=== PATIENT | male | born 1955 | race Caucasian/White ===

== ENCOUNTER → 2019-09-30 10:37 | Outpatient (BNVA) | payer BC, SELFPAY | PROVIDERS: Family Provider Nurse Practitioner; PCP Nurse Practitioner; Visit Provider Nurse Practitioner | DX: F41.9 Anxiety disorder, unspecified (principal); E78.2 Mixed hyperlipidemia; K21.9 Gastro-esophageal reflux disease without esophagitis; I10 Essential (primary) hypertension | CPT/HCPCS: 80053; 80061 ==

== ENCOUNTER 2019-12-23 08:45 | Outpatient (CLI) | payer MEDICARE, SELFPAY ==
--- NOTE | 2019-12-23 08:55 | NMCV_ITS ---
NM ok perf SPECT r/s* [id number] Eugenio Daugherty Age: 64 Gender: M : 1955 Exam Date: 12/23/2019 08:55 Ordering Phys: Efraín Lehman MD ([email or web address]) Technologist: DENZEL Fan Exam Location: [facility] Indications: CHEST PAIN STRESS TEST Please see separate stress test report in [facility] for full findings IMAGE PROTOCOL Rest/Stress 1 Lexiscan Day Radiopharmaceutical Dose (mCi) Administration Site Administered by Rest: Tc-99m 10.9 IV DENZEL Martines Sestamibi Stress:Tc-99m 32.8 IV DENZEL Martines Sestamibi Rest: 23-Dec-2019 60 Discovery 630 Stress: 23-Dec-2019 30 Discovery 630 0.4mg Lexiscan. Images obtained in supine and prone position. SPECT RESULTS Technical Quality: Excellent Raw Data Analysis: Normal Image Corrections: No attenuation or motion correction applied Summed Stress Score: 2 Summed Rest Score: 0 Summed Difference Score: 2 PERFUSION FINDINGS Small sized perfusion abnormality of mild severity of inferior wall on stress images. FUNCTIONAL RESULTS (calculated via Gated SPECT) Stress Image LV EF (%): 47 Stress EDV (mL):158 TID: 0.93 Stress ESV (mL):83 FUNCTIONAL FINDINGS: The left ventricle is normal in size. Transient Ischemia Dilatation of 0.93. There is mildly reduced left ventricular global systolic function. The left ventricular ejection fraction is mildly reduced with a value of 47%. Mild global hypokinesis. Increased end-diastolic and end-systolic volumes. IMPRESSIONS 1. Small sized perfusion abnormality of mild severity of inferior wall on stress images. This may be suggestive of small area of ischemia in right coronary artery territory. 2. The left ventricular ejection fraction is mildly reduced with a value of 47%. 3. Mild global hypokinesis. 4. When compared to previous study last year, there is small area of ischemia in right coronary artery territory. Leticia Tovar MD (Electronically Signed) Final Date: 23 Dec 2019 13:38 S
--- NOTE | 2019-12-23 08:55 | ECG_ITS ---
NAME OF STUDY: LEXISCAN SESTAMIBI STRESS TEST INDICATION: Chest Pain LEXISCAN STRESS TEST ORDERING PHYSICIAN: Fallon CLINICAL INFORMATION: Chest pain INTERPRETATION: 1. The patient was brought to the laboratory where Lexiscan was infused over 20 seconds. The resting blood pressure was 150/74. Maximum blood pressure was 150/74. The resting heart rate was 47 beats per minute. The maximum heart rate is 62 beats per minute. 2. The baseline electrocardiogram reveals sinus rhythm with LVH by voltage and a right bundle branch block. 3. With Lexiscan infusion, there were no ST segment changes to suggest ischemia. 4. The patient experienced no symptoms or arrhythmias during the examination. CONCLUSION: 1. Unremarkable Lexiscan infusion. 2. Nuclear imaging to follow. Electronically Signed On 12-23-2019 17:08:51 CDT by Efraín Lehman M.D. [email or web address]
[2019-12-23 08:56] VITALS: BMI 26.6
--- NOTE | 2019-12-23 10:28 | SUR.PREOP ---
Patient reports no pain or discomfort prior to the start of the procedure.
[2019-12-23] MEDS: regadenoson 0.4 Mg/5 ml Syringe IVP (10:30)
[2019-12-23 10:34] VITALS: BP 125/70; PULSE 60
== END 2019-12-23 08:46 | disposition home or self-care (01) ==
LOC: RAD 08:49
PROVIDERS: Family Provider Nurse Practitioner; PCP Nurse Practitioner; Visit Provider Internal Medicine Cardiovascular Disease
DX: R07.9 Chest pain, unspecified (principal); E78.2 Mixed hyperlipidemia; I10 Essential (primary) hypertension
CPT/HCPCS: 78452; 93017; A9500; J2785

== ENCOUNTER → 2020-01-25 11:00 | Outpatient (BNVA) | payer MEDICARE, SELFPAY | PROVIDERS: Family Provider Nurse Practitioner; PCP Nurse Practitioner; Visit Provider Counselor Professional | DX: F41.9 Anxiety disorder, unspecified (principal); F32.9 Major depressive disorder, single episode, unspecified | CPT/HCPCS: 90834 ==

== ENCOUNTER → 2020-03-07 16:06 | Outpatient (BNVA) | payer MEDICARE, SELFPAY | PROVIDERS: Family Provider Nurse Practitioner; Visit Provider Nurse Practitioner | DX: F41.9 Anxiety disorder, unspecified (principal); F32.9 Major depressive disorder, single episode, unspecified; E78.2 Mixed hyperlipidemia; I10 Essential (primary) hypertension; G47.00 Insomnia, unspecified | CPT/HCPCS: 80053; 80061; 84443 ==